=== PATIENT | female | born 1955 | race Hispanic/Latino ===

== ENCOUNTER → 2020-04-09 | Outpatient (CLI) | payer MEDICARE ==
[~2020-04-09] MED LIST: IOPAMIDOL 370 MG/ML 200 ML INFUS..BTL INJ ONE; SODIUM CHLORIDE 0.9% 50ML 50 ML ONE
[2020-04-09 09:50] LABS: BLOOD UREA NITROGEN 11 mg/dL (7-26); BUN/CREATININE RATIO 14 (6-25); CREATININE, SERUM 0.78 mg/dL (0.57-1.11); EST GLOMERULAR FILTRATION RATE > 60 ML/MIN (60-)
--- NOTE | 2020-04-09 13:46 | Diagnostic Imaging Report ---
Examination:CT SOFT TISSUE NECK WITH CONTRAST History:^[id number] ^[id number] ^LOCALIZED SWELLING,MASS LUMP; Lump in the neck since Monday with mild tenderness. Comparison studies: None Technique: Axial images from the skull base to the thoracic inlet Coronal and sagittal reformatted images. Dose modulation, iterative reconstruction, and/or weight based adjustment of the mA/kV was utilized to reduce the radiation dose to as low as reasonably achievable. Intravenous contrast: 100mL of Isovue 370. Findings: Soft tissues: No abnormalities. Aerodigestive tract: In the left of midline and midline floor of the mouth and at the inferior margin of the genioglossus muscle, there is a 1.0 x 2.0 x 1.6 cm (superoinferior x anteroposterior x transverse dimensions) septated cystic structure. Lymph nodes: No radiographically significant adenopathy. Vessels: Arteries and veins are patent. Thyroid gland: Normal in size and homogeneous. Submandibular glands: Normal in size and homogeneous. Parotid glands: Normal in size and homogeneous. Orbits: No abnormalities. Paranasal sinuses: Clear. Temporal bones: No abnormalities. Skull base and facial bones: Intact. Cervical spine: Diffuse disc osteophyte complex and bilateral uncovertebral arthropathy at C4-C5 results in mild right and moderate left neural foraminal narrowing. No canal stenosis. Diffuse disc osteophyte complex and bilateral uncovertebral arthropathy at C5-C6. No foraminal or canal stenosis. Bilateral facet arthropathy results in moderate left neural foraminal narrowing at C6-C7. No right foraminal or canal stenosis. No disc bulge or herniation or foraminal or canal stenosis. Visualized lung apices: No abnormalities. IMPRESSION: A 1.0 x 2.0 x 1.6 cm cystic lesion in the midline and midline floor of the mouth that could represent either a ranula or epidermoid cyst. No concerning adenopathy. Signed by: Dr. Laura Rivera M.D. on 04/09/2020 1:43 PM
== END ==
LOC: CT 08:45 → EDBD 09:00
PROVIDERS: ATTEND Internal Medicine
DX: R22.9 Localized swelling, mass and lump, unspecified (principal)
CPT/HCPCS: 36415; 70491; 82565; 84520; Q9967